=== PATIENT | female | born 1985 | race Caucasian/White ===

== ENCOUNTER → 2022-04-13 | Emergency (ER) | payer OTHER ==
[~2022-04-13] VITALS: Ht 160 cm; Wt 86.2 kg
[~2022-04-13] MED LIST: SYNTHROID150 MCG PO
== END | disposition left against medical advice (07) ==
LOC: ER 08:40
DX: R10.13 Epigastric pain (principal); K57.32 Diverticulitis of large intestine without perforation or abscess without bleeding